=== PATIENT | female | born 1955 | race Caucasian/White ===

== ENCOUNTER → 2017-02-07 | Outpatient (CLI) | payer OTHER ==
--- NOTE | 2017-02-08 17:41 | SLEEPCENT ---
DATE OF PROCEDURE: 02/07/2017 ORDERED BY: Joan Fried Nocturnal polysomnography was performed due to concern for the obstructive sleep apnea syndrome in this patient with a history of excessive somnolence, snoring and nonrestorative sleep. 8 hours and 9 minutes of data were reviewed. There were 430 minutes of sleep identified. Sleep latency was mildly prolonged at 16 minutes. Rapid eye movement (REM) sleep was delayed at 262 minutes. Indeed REM sleep was not seen until interventions were made. The overall sleep architecture was good with evidence of REM rebound. Efficiency of sleep 89%. The patient's EKG showed a sinus rhythm with an average heart rate of 68 beats per minute. EEG showed reasonably normal waveforms for awake and sleep. Some alpha intrusion was noted. There were 237 respiratory events identified of 10 seconds in duration or greater for an apnea-hypopnea index of 33. The events were mixed in character, more obstructive than central. Arousals from respiratory events occurred 7.4 times per hour and oxygen desaturations were seen into the low 80s. Having clearly established the presence of obstructive sleep apnea syndrome before midnight, testing was stopped for the application of pressure therapy. The patient was fit with a ResMed AirFit F20 full face mask of small size, 4 cm of water pressure were applied to the circuit and the lights were extinguished. Throughout the remaining hours of testing, pressure titration was performed to an optimal pressure of +9 with which the patient experienced REM rebound without respiratory event or significant oxygen desaturation. There was some limb activity noted, less so after pressure therapy. Arousal index was 5.3. IMPRESSION: Severe obstructive sleep apnea syndrome (G47.33). RECOMMENDATION: Nightly use of pressure therapy 9 cm of water. Copy To: Dr. Chavarria
== END ==
LOC: M SLEEP 19:44
PROVIDERS: ATTEND Nurse Practitioner Adult Health
DX: G47.30 Sleep apnea, unspecified (principal)

== ENCOUNTER → 2017-04-27 | Outpatient (CLI) | payer OTHER ==
--- NOTE | 2017-04-27 12:49 | REPMRS ---
Patient History The patient states she had a clinical breast exam in 03/2017. Patient is nulliparous. Family history of breast cancer in maternal aunt at age 50 or over, ovarian cancer in maternal aunt at age 50 or over, and colorectal cancer in paternal grandmother at age 90. Digital Woman Screen Mammo: April 27, 2017 - Exam #: [id number] Bilateral CC and MLO view(s) were taken. Technologist: Liliam Moise, Technologist Prior study comparison: March 03, 2016, digital woman screen mammo performed at [facility]. January 31, 2015, right breast digital mammo diagnostic unilateral, performed at [facility]. FINDINGS: There are scattered fibroglandular densities. There has been no change in the appearance of the mammogram from the prior studies. There is a mild amount of residual fibroglandular tissue which is fairly symmetric. There is no interval development of dominant mass, architectural distortion, or clustered microcalcification suggestive of malignancy. ASSESSMENT: BI-RADS/ACR category 1 mammogram. Negative. Recommendation Routine screening mammogram in 1 year (for women over age 40). This mammogram was interpreted with the aid of an FDA-approved computer-aided dectection system. A. Negative x-ray reports should not delay biopsy if a dominant or clinically suspicious mass is present. B. Four to eight percent of cancers are not identified by mammography. C. Adenosis and dense breast may obscure an underlying neoplasm. Electronically Signed By: Kar Nash MD 04/27/17 [id number]
== END ==
LOC: M WHC 11:25
PROVIDERS: ATTEND Obstetrics & Gynecology
DX: Z12.31 Encounter for screening mammogram for malignant neoplasm of breast (principal)

== ENCOUNTER → 2018-09-04 | Outpatient (CLI) | payer OTHER ==
--- NOTE | 2018-09-04 09:41 | REPMRS ---
Patient History The patient states she had a clinical breast exam in 03/2018 Family history of breast cancer at age 50 or over and ovarian cancer at age 50 or over in maternal aunt, colorectal cancer at age 90 in paternal grandmother. Digital Woman Screen Mammo: September 04, 2018 - Exam #: [id number] Bilateral CC and MLO view(s) were taken. Technologist: Amita Corral, Technologist Prior study comparison: April 27, 2017, digital woman screen mammo performed at [facility]. March 03, 2016, digital woman screen mammo performed at [facility]. January 22, 2015, digital woman screen mammo performed at [facility]. FINDINGS: There are scattered fibroglandular densities. There is a stable nodule in the upper outer quadrant of the right breast unchanged from multiple prior studies. There has been no change in the appearance of the mammogram from the prior studies. There is a mild amount of scattered fibroglandular density which is fairly symmetric. There is no interval development of dominant mass, architectural distortion, or clustered microcalcification suggestive of malignancy. 3-D tomosynthesis shows no additional findings. Assessment: BI-RADS/ACR category 2 mammogram. Benign Findings. Recommendation Routine screening mammogram of both breasts in 1 year (for women over age 40). This patient's Lifetime Breast Cancer RIsk is estimated at 10.6 %. This mammogram was interpreted with the aid of an FDA-approved computer-aided dectection system. Electronically Signed By: Hai Ureña MD 09/04/18 0969
--- NOTE | 2018-09-05 11:15 | DEXA ---
AP SPINE L1 - L4 1.231 0.3 1.7 LT FEMUR TOTAL 0.995 -0.1 1.0 LT NECK 0.877 -1.2 0.2 RT FEMUR TOTAL 0.946 -0.5 0.6 RT NECK 0.886 -1.1 0.3 TOTAL BODY TOTAL OTHER COMMENTS: Normal bone densitometry of the spine. There is low bone density of the hips. The density of the spine has increased 0.2% since the initial exam on 05/01/2009. The spine density has decreased 2.7% since the most recent exam on 11/05/2011. The density of the left hip has decreased 12.6% since the initial exam on 05/01/2009. The density of the left hip has decreased 8.3% since the most recent exam on 11/05/2011. The density of the right hip has decreased 12.6% since the initial exam on 05/01/2009. The density of the right hip has decreased 11.6% since the most recent exam on 11/05/2011. FOLLOW-UP: Recommendation for the next bone density exam: 2 years. PRUDENCE
== END ==
LOC: M WHC 08:21
PROVIDERS: ATTEND Obstetrics & Gynecology
DX: Z12.31 Encounter for screening mammogram for malignant neoplasm of breast (principal); Z13.820 Encounter for screening for osteoporosis; N63.11 Unspecified lump in the right breast, upper outer quadrant